=== PATIENT | female | born 1975 | race African-American/Black ===

== ENCOUNTER 2018-08-14 09:03 | Emergency (ER) | payer SELFPAY ==
[~2018-08-14] VITALS: Ht 167.6 cm; Wt 77.1 kg
[2018-08-14] MEDS ORDERED: KETOROLAC TROMETHAMINE 60 MG/2 ML VIAL IM ONE (09:30)
[2018-08-14 10:32] LABS: CLARITY,URINE CLEAR (CLEAR); COLOR,URINE YELLOW (YELLOW)
[2018-08-14 10:33] LABS: BILIRUBIN,URINE NEGATIVE (NEGATIVE); KETONES,URINE NEGATIVE (NEGATIVE); LEUKOCYTE ESTERASE ,URINE NEGATIVE (NEGATIVE); NITRITE,URINE NEGATIVE (NEGATIVE); PREGNANCY TEST, URINE NEGATIVE (NEGATIVE); PROTEIN,URINE DIPSTICK NEGATIVE (NEGATIVE); URINE UROBILINOGEN 0.2 mg/dL (0.2 - 1)
[2018-08-14 10:49] LABS: BACTERIA,URINE MODERATE /HPF; EPITHELIAL CELLS,URINE MODERATE /LPF
--- NOTE | 2018-08-14 11:46 | NUR ---
No answer at this time from lobby.
--- NOTE | 2018-08-14 12:08 | NUR ---
No answer at this time from lobby.
== END 2018-08-14 13:33 | disposition left against medical advice (07) ==
LOC: ER 09:03
DX: R10.9 Unspecified abdominal pain (principal); N30.91 Cystitis, unspecified with hematuria; S39.012A Strain of muscle, fascia and tendon of lower back, initial encounter
CPT/HCPCS: 81001; 81025; 99281